=== PATIENT | male | born 1970 | race Two or more races ===

== ENCOUNTER 2022-07-18 18:04 | Emergency (ER) | payer OTHER ==
[~2022-07-18] VITALS: Ht 165.1 cm; Wt 67.6 kg
--- NOTE | 2022-07-18 18:18 | NUR ---
Specimen for COVID-19 antigen collected and brought to lab.
--- NOTE | 2022-07-18 18:55 | NUR ---
Received report from GARY Call.
--- NOTE | 2022-07-18 19:57 | NUR ---
Patient discharged to home in stable condition. A/O x 4. NAD noted. All belongings with patient. Ambulatory with a steady gait. Written and verbal after care instructions given. Patient verbalizes understanding of instructions. Stressed follow up or return to ER for worsening s/s.
[2022-07-18 20:07] VITALS: BP 126/60
== END 2022-07-18 20:00 | disposition home or self-care (01) ==
LOC: ER 18:04
DX: J20.9 Acute bronchitis, unspecified (principal); Z20.822 Contact with and (suspected) exposure to COVID-19
CPT/HCPCS: A4663